=== PATIENT | male | born 1995 | race Caucasian/White ===

== ENCOUNTER 2020-03-12 21:56 | Inpatient (IN) ==
[2020-03-12] MEDS ORDERED: 0.9 % Sodium Chloride 1,000 ML IVC ONE (22:40)
[2020-03-12] MEDS ORDERED: Ketorolac 30 MG/ML VIAL IVP ONE (22:40)
[2020-03-12 22:49] LABS: Basophils % 0.1 %; Eosinophils # 0.1 K/mcL (0.0-0.6); Eosinophils % 0.5 %; Hematocrit 41.1 % (37.5-50.1); Hemoglobin 13.3 g/dL (12.9-16.9); Immature Granulocytes % 0.4 % (0-4); Lymphocytes # 1.5 K/mcL (0.6-4.6); Lymphocytes % 13.9 %; Mean Corpuscular HGB Conc 32.4 g/dL (31.6-35.5); Mean Corpuscular Hemoglobin 28.1 pg (28.0-33.3); Mean Corpuscular Volume 86.9 fL (83.0-100.0); Mean Platelet Volume 9.3 fL (9.4-12.4); Monocytes # 0.8 K/mcL (0.0-1.3); Monocytes % 7.6 %; Neutrophils # 8.4 K/mcL (1.6-8.9); Platelet Count 236 K/mcL (140-400); Red Blood Count 4.73 M/mcL (4.19-5.50); Red Cell Distribution Width 14.4 % (11.5-14.5); Segmented Neutrophils % 77.5 %; White Blood Count 10.9 K/mcL (4.3-11.1)
[2020-03-12 23:02] LABS: BUN/Creatinine Ratio 12 (6-26); Blood Urea Nitrogen 10 mg/dL (6-20); Calcium 9.1 mg/dL (8.6-10.3); Carbon Dioxide 30 mEq/L (23-29); Chloride 99 mEq/L (98-107); Glucose 143 mg/dL (70-105); Osmolality,Calculated 286 (280-300); Potassium 3.8 mEq/L (3.5-5.1); Sodium 137 mEq/L (136-145); eGFR For African Americans > 60 (> 60); eGFR For Non-African Americans > 60 (> 60)
[2020-03-12 23:07] LABS: Activated Partial Thrombo Time 28.9 Seconds (26.0-36.0); INR 1.4; Prothrombin Time 15.5 Seconds (9.4-12.1)
[2020-03-13] MEDS ORDERED: *HR* EPINEPHrine 1 MG/10 ML SYRINGE ONE (00:06)
[2020-03-13] MEDS ORDERED: methylPREDNISolone 125 MG/2 ML VIAL ONE (00:10)
[2020-03-13] MEDS ORDERED: Ondansetron 4 MG/2 ML VIAL IVP ONE (01:06)
[2020-03-13] MEDS ORDERED: ceFAZolin 1,000 MG in Water for inj. (sterile) 10 ML IVP ONE (01:21)
[2020-03-13] MEDS ORDERED: *HR* OxyCODONE Immed Rel 5 MG TABLET PO PRN ×2 (01:28→02:36)
[2020-03-13] MEDS ORDERED: Ibuprofen 400 MG TABLET PO PRN ×2 (01:28→02:36)
[2020-03-13] MEDS: hydroCHLOROthiazide 25 MG TABLET PO SCH (09:07)
[2020-03-13] MEDS: QUEtiapine Fumarate 25 MG TABLET PO SCH ×3 (09:07→20:00)
[2020-03-13] MEDS: Topiramate 25 MG TABLET PO SCH ×2 (09:07→20:00)
[2020-03-13] MEDS: ceFAZolin 2,000 MG in 0.9 % Sodium Chloride 100 ML IVPB SCH ×2 (11:44→20:00)
[2020-03-13] MEDS: 0.9 % Sodium Chloride 1,000 ML IVC SCH ×2 (13:25→21:36)
[2020-03-13] MEDS: Doxycycline 100 MG in 0.9 % Sodium Chloride Mini Bag 100 ML IVPB SCH (13:46)
[2020-03-13] MEDS: Nystatin POWDER 30 GM BOTTLE TP SCH (23:26)
[2020-03-14] MEDS: ceFAZolin 2,000 MG in 0.9 % Sodium Chloride 100 ML IVPB SCH ×2 (02:05→13:04)
[2020-03-14 05:26] LABS: Basophils % 0.1 %; Eosinophils % 0.1 %; Hematocrit 38.5 % (37.5-50.1); Hemoglobin 12.1 g/dL (12.9-16.9); Immature Granulocytes % 0.6 % (0-4); Lymphocytes # 0.9 K/mcL (0.6-4.6); Lymphocytes % 8.9 %; Mean Corpuscular HGB Conc 31.4 g/dL (31.6-35.5); Mean Corpuscular Hemoglobin 27.6 pg (28.0-33.3); Mean Corpuscular Volume 87.9 fL (83.0-100.0); Mean Platelet Volume 9.2 fL (9.4-12.4); Monocytes % 10.2 %; Platelet Count 217 K/mcL (140-400); Red Blood Count 4.38 M/mcL (4.19-5.50); Red Cell Distribution Width 13.8 % (11.5-14.5); Segmented Neutrophils % 80.1 %
[2020-03-14] MEDS: 0.9 % Sodium Chloride 1,000 ML IVC SCH (05:34)
[2020-03-14] MEDS: Doxycycline 100 MG in 0.9 % Sodium Chloride Mini Bag 100 ML IVPB SCH ×2 (05:35→18:30)
[2020-03-14] MEDS: *HR* Enoxaparin 40 MG/0.4 ML SYRINGE SQ SCH (05:38)
[2020-03-14 06:54] LABS: BUN/Creatinine Ratio 25 (6-26); Blood Urea Nitrogen 22 mg/dL (6-20); Calcium 8.9 mg/dL (8.6-10.3); Carbon Dioxide 31 mEq/L (23-29); Chloride 103 mEq/L (98-107); Glucose 188 mg/dL (70-105); Osmolality,Calculated 294 (280-300); Potassium 4.4 mEq/L (3.5-5.1); Sodium 138 mEq/L (136-145); eGFR For African Americans > 60 (> 60); eGFR For Non-African Americans > 60 (> 60)
[2020-03-14] MEDS: hydroCHLOROthiazide 25 MG TABLET PO SCH (10:11)
[2020-03-14] MEDS: Topiramate 25 MG TABLET PO SCH ×2 (10:11→21:14)
[2020-03-14] MEDS: Nystatin POWDER 30 GM BOTTLE TP SCH ×2 (10:13→21:14)
[2020-03-14] MEDS: QUEtiapine Fumarate 25 MG TABLET PO SCH ×3 (11:31→21:14)
[2020-03-14] MEDS ORDERED: ceFAZolin 2,000 MG in 0.9 % Sodium Chloride 100 ML IVPB SCH (20:00)
[2020-03-14] MEDS: Doxycycline 100 MG CAPSULE PO SCH (21:14)
[2020-03-14] MEDS: cephALEXin 500 MG CAPSULE PO SCH (21:14)
[2020-03-15] MEDS: *HR* Enoxaparin 40 MG/0.4 ML SYRINGE SQ SCH (05:43)
[2020-03-15 07:27] LABS: Basophils % 0.1 %; Eosinophils # 0.3 K/mcL (0.0-0.6); Eosinophils % 4.3 %; Hematocrit 37.6 % (37.5-50.1); Hemoglobin 11.8 g/dL (12.9-16.9); Immature Granulocytes % 0.3 % (0-4); Lymphocytes # 2.2 K/mcL (0.6-4.6); Lymphocytes % 30.5 %; Mean Corpuscular HGB Conc 31.4 g/dL (31.6-35.5); Mean Corpuscular Hemoglobin 27.8 pg (28.0-33.3); Mean Corpuscular Volume 88.7 fL (83.0-100.0); Mean Platelet Volume 8.9 fL (9.4-12.4); Monocytes # 0.8 K/mcL (0.0-1.3); Monocytes % 11.1 %; Neutrophils # 3.8 K/mcL (1.6-8.9); Platelet Count 244 K/mcL (140-400); Red Blood Count 4.24 M/mcL (4.19-5.50); Red Cell Distribution Width 14.1 % (11.5-14.5); Segmented Neutrophils % 53.7 %; White Blood Count 7.1 K/mcL (4.3-11.1)
[2020-03-15 07:50] LABS: BUN/Creatinine Ratio 29 (6-26); Blood Urea Nitrogen 27 mg/dL (6-20); Calcium 8.7 mg/dL (8.6-10.3); Carbon Dioxide 30 mEq/L (23-29); Chloride 103 mEq/L (98-107); Glucose 141 mg/dL (70-105); Osmolality,Calculated 295 (280-300); Potassium 3.7 mEq/L (3.5-5.1); Sodium 139 mEq/L (136-145); eGFR For African Americans > 60 (> 60); eGFR For Non-African Americans > 60 (> 60)
[2020-03-15] MEDS: Topiramate 25 MG TABLET PO SCH (08:36)
[2020-03-15] MEDS: hydroCHLOROthiazide 25 MG TABLET PO SCH (08:36)
[2020-03-15] MEDS: QUEtiapine Fumarate 25 MG TABLET PO SCH (08:36)
[2020-03-15] MEDS: cephALEXin 500 MG CAPSULE PO SCH ×2 (08:36→12:57)
[2020-03-15] MEDS: Doxycycline 100 MG CAPSULE PO SCH (08:36)
[2020-03-15] MEDS: Nystatin POWDER 30 GM BOTTLE TP SCH (08:37)
[2020-03-15 11:38] VITALS: BP 156/108
== END 2020-03-15 13:00 | disposition home or self-care (01) | DRG 720 ==
LOC: EMEROOPIK 21:56 → INPPIK 21:56
PROVIDERS: ADMIT Family Medicine; ATTEND Family Medicine

== ENCOUNTER 2020-05-15 12:47 | Observation (INO) ==
[2020-05-15] MEDS ORDERED: levoFLOXacin 750 MG/150 ML 750 MG/150 ML BAG IVPB ONE (13:24)
[2020-05-15 13:47] LABS: VBG HCO3 31 mEq/L (21-27); VBG PCO2 61 mmHg (41-51); VBG PH 7.32 pH Units (7.32-7.42); VBG PO2 22 mmHg (25-50)
[2020-05-15 13:50] LABS: Basophils % 0.3 %; Eosinophils # 0.1 K/mcL (0.0-0.6); Hematocrit 42.5 % (37.5-50.1); Hemoglobin 13.4 g/dL (12.9-16.9); Immature Granulocytes % 0.3 % (0-4); Lymphocytes # 1.8 K/mcL (0.6-4.6); Lymphocytes % 29.7 %; Mean Corpuscular HGB Conc 31.5 g/dL (31.6-35.5); Mean Corpuscular Hemoglobin 27.7 pg (28.0-33.3); Mean Corpuscular Volume 87.8 fL (83.0-100.0); Mean Platelet Volume 8.8 fL (9.4-12.4); Monocytes # 0.6 K/mcL (0.0-1.3); Neutrophils # 3.5 K/mcL (1.6-8.9); Platelet Count 232 K/mcL (140-400); Red Blood Count 4.84 M/mcL (4.19-5.50); Red Cell Distribution Width 14.9 % (11.5-14.5); Segmented Neutrophils % 57.7 %
[2020-05-15 14:09] LABS: Alanine Aminotransferase 19 Units/L (7-52); Albumin 4.2 g/dL (3.5-5.7); Albumin/Globulin Ratio 1.3 (1.1-2.2); Alkaline Phosphatase 48 Units/L (34-104); Aspartate Amino Transferase 15 Units/L (13-39); BUN/Creatinine Ratio 19 (6-26); Bilirubin,Direct 0.1 mg/dL (0.0-0.2); Bilirubin,Indirect 0.2 mg/dL (0.0-1.0); Bilirubin,Total 0.3 mg/dL (0.3-1.0); Blood Urea Nitrogen 16 mg/dL (6-20); Calcium 9.3 mg/dL (8.6-10.3); Carbon Dioxide 31 mEq/L (23-29); Chloride 99 mEq/L (98-107); Globulin 3.3 g/dL (2.4-3.5); Glucose 166 mg/dL (70-105); Osmolality,Calculated 293 (280-300); Potassium 3.4 mEq/L (3.5-5.1); Sodium 139 mEq/L (136-145); Total Protein 7.5 g/dL (6.4-8.9); eGFR For African Americans > 60 (> 60); eGFR For Non-African Americans > 60 (> 60)
[2020-05-15 14:11] LABS: Troponin I < 0.03 ng/mL (< 0.04)
[2020-05-15 14:14] LABS: Activated Partial Thrombo Time 29.9 Seconds (26.0-36.0); INR 1.1; Prothrombin Time 12.7 Seconds (9.4-12.1)
[2020-05-15] MEDS ORDERED: *HR* Enoxaparin 40 MG/0.4 ML SYRINGE SQ ONE (14:19)
[2020-05-15] MEDS ORDERED: *HR* Enoxaparin 100 MG/ML SYRINGE SQ ONE (14:30)
[2020-05-15] MEDS ORDERED: Nafcillin 2,000 MG in 0.9 % Sodium Chloride Mini Bag 100 ML IVPB ONE (15:30)
[2020-05-15] MEDS ORDERED: Ondansetron ODT 4 MG TAB.RAPDIS SL PRN (15:37)
[2020-05-15] MEDS ORDERED: Naloxone 0.4 MG/ML INJ IVP PRN (15:37)
[2020-05-15] MEDS ORDERED: Acetaminophen 325 MG TABLET PO PRN (15:37)
[2020-05-15 15:39] LABS: Bilirubin,Urine Negative (Negative); Blood,Urine Negative (Negative); Clarity,Urine Clear (Clear); Color,Urine Yellow (Yellow); Glucose,Urine (UA) Normal (Normal); Ketones,Urine Negative (Negative); Leukocyte Esterase,Urine Negative (Negative); Nitrite,Urine Negative (Negative); PH,Urine 5.5 pH Units (5.0-8.0); Protein,Urine Negative (Neg-Trace); Specific Gravity,Urine 1.025 (1.010-1.025); Urobilinogen,Urine Normal (Normal)
[2020-05-15] MEDS ORDERED: 0.9 % Sodium Chloride 1,000 ML IVC SCH (15:45)
[2020-05-15] MEDS: QUEtiapine Fumarate 25 MG TABLET PO SCH ×2 (17:37→20:44)
[2020-05-15] MEDS: Topiramate 25 MG TABLET PO SCH (20:44)
[2020-05-15] MEDS: Nafcillin 2,000 MG in 0.9 % Sodium Chloride Mini Bag 100 ML IVPB SCH (20:45)
[2020-05-15] MEDS ORDERED: Nafcillin 2,000 MG in 0.9 % Sodium Chloride Mini Bag 100 ML IVPB SCH (21:30)
[2020-05-16] MEDS ORDERED: Ringers Solution, Lactated 1,000 ML IVC ONE (00:18)
[2020-05-16] MEDS ORDERED: Furosemide 20 MG/2 ML VIAL IVP ONE (03:01)
[2020-05-16] MEDS: Nafcillin 2,000 MG in 0.9 % Sodium Chloride Mini Bag 100 ML IVPB SCH ×4 (03:23→20:55)
[2020-05-16 06:20] LABS: BUN/Creatinine Ratio 22 (6-26); Blood Urea Nitrogen 17 mg/dL (6-20); Calcium 8.9 mg/dL (8.6-10.3); Carbon Dioxide 30 mEq/L (23-29); Chloride 102 mEq/L (98-107); Glucose 169 mg/dL (70-105); Osmolality,Calculated 291 (280-300); Potassium 3.8 mEq/L (3.5-5.1); Sodium 138 mEq/L (136-145); eGFR For African Americans > 60 (> 60); eGFR For Non-African Americans > 60 (> 60)
[2020-05-16] MEDS: *HR* Enoxaparin 40 MG/0.4 ML SYRINGE SQ SCH (06:43)
[2020-05-16 08:11] LABS: Basophils % 0.4 %; Eosinophils # 0.2 K/mcL (0.0-0.6); Hematocrit 40.4 % (37.5-50.1); Hemoglobin 12.7 g/dL (12.9-16.9); Immature Granulocytes % 0.6 % (0-4); Lymphocytes # 2.1 K/mcL (0.6-4.6); Lymphocytes % 39.4 %; Mean Corpuscular HGB Conc 31.4 g/dL (31.6-35.5); Mean Corpuscular Hemoglobin 28.2 pg (28.0-33.3); Mean Corpuscular Volume 89.6 fL (83.0-100.0); Mean Platelet Volume 9.4 fL (9.4-12.4); Monocytes # 0.6 K/mcL (0.0-1.3); Monocytes % 10.5 %; Neutrophils # 2.4 K/mcL (1.6-8.9); Platelet Count 235 K/mcL (140-400); Red Blood Count 4.51 M/mcL (4.19-5.50); Red Cell Distribution Width 15.4 % (11.5-14.5); Segmented Neutrophils % 46.1 %; White Blood Count 5.3 K/mcL (4.3-11.1)
[2020-05-16] MEDS: QUEtiapine Fumarate 25 MG TABLET PO SCH ×3 (08:23→20:55)
[2020-05-16] MEDS: hydroCHLOROthiazide 25 MG TABLET PO SCH (08:24)
[2020-05-16] MEDS: Topiramate 25 MG TABLET PO SCH ×2 (08:24→20:55)
[2020-05-16] MEDS ORDERED: levoFLOXacin 750 MG/150 ML 750 MG/150 ML BAG IVPB SCH (13:00)
[2020-05-17] MEDS: Nafcillin 2,000 MG in 0.9 % Sodium Chloride Mini Bag 100 ML IVPB SCH ×2 (03:52→10:26)
[2020-05-17] MEDS: *HR* Enoxaparin 40 MG/0.4 ML SYRINGE SQ SCH (06:42)
[2020-05-17 06:54] VITALS: BP 122/73
[2020-05-17] MEDS: QUEtiapine Fumarate 25 MG TABLET PO SCH (10:26)
[2020-05-17] MEDS: hydroCHLOROthiazide 25 MG TABLET PO SCH (10:26)
[2020-05-17] MEDS: Topiramate 25 MG TABLET PO SCH (10:26)
== END 2020-05-17 12:02 | disposition home or self-care (01) ==
LOC: INPPIK 12:47 → EMEROOPIK 12:47 → INPPIK 17:02
PROVIDERS: ADMIT Family Medicine; ATTEND Family Medicine